=== PATIENT | female | born 1980 | race Caucasian/White ===

== ENCOUNTER 2017-09-23 23:06 | Emergency (ER) | END 2017-09-24 02:00 | disposition home or self-care (01) ==

== ENCOUNTER 2018-09-11 06:14 | Inpatient (IN) | payer OTHER ==
[~2018-09-11] VITALS: Ht 180.3 cm; Wt 110.7 kg
[~2018-09-11 06:14] MED LIST: FER325 PO; HYDR-4011 PO; IBUP-1542 PO; ONDA4TAB14 PO
[2018-09-11] MEDS ORDERED: morphine 4 MG/ML VIAL IV STA (07:22)
[2018-09-11] MEDS ORDERED: ONDANSETRON 4 MG INJ IV STA (07:22)
--- NOTE | 2018-09-11 07:48 | ERD ---
ER Documentation Chief Complaint Chief Complaint RIGHT FLANK PAIN XTODAY HPI 38-year-old female history of cholelithiasis. Abdominal pain began this morning around 2 AM approximately 5 to 6 hours prior to arrival. Patient attempted NSAIDs at home with minimal relief. No vomiting or diarrhea but does feel nauseous. No fevers or chills. Denies any change in diet, recent infections, recent travel or recent antibiotics. Denies any dysuria, vaginal discharge. ROS All systems reviewed and are negative except as per history of present illness. Medications Home Meds Discontinued Scripts Ondansetron (Ondansetron Odt) 4 Mg Tab.rapdis, 4 MG PO Q6H PRN for NAUSEA AND/OR VOMITING, #10 TAB Prov:CAROLINA CARDOZA PA-C 09/24/17 Ibuprofen* (Motrin*) 600 Mg Tab, 600 MG PO Q6, #30 TAB Prov:CAROLINA CARDOZA PA-C 09/24/17 Hydrocodone/Acetaminophen (Skandia 5-325 Tablet) 1 Each Tablet, 1 TAB PO Q6H PRN for PAIN, #7 TAB Prov:CAROLINA CARDOZA PA-C 09/24/17 Allergies Allergies: Coded Allergies: No Known Allergy (Unverified , 09/11/18) PMhx/Soc History of Surgery: No Anesthesia Reaction: No Hx Neurological Disorder: No Hx Respiratory Disorders: No Hx Cardiac Disorders: No Hx Psychiatric Problems: No Hx Miscellaneous Medical Probl: Yes (gallstones) Hx Alcohol Use: Yes (social) Hx Substance Use: No Hx Tobacco Use: No Smoking Status: Current some day smoker Physical Exam Vitals Vital Signs Date Temp Pulse Resp B/P (MAP) Pulse Ox O2 O2 Flow FiO2 Time Delivery Rate 09/11/18 99.5 73 19 131/58 98 06:16 (82) Physical Exam Const: No acute distress Head: Atraumatic Eyes: Normal Conjunctiva ENT: Normal External Ears, Nose and Mouth. Neck: Full range of motion. No meningismus. Resp: Clear to auscultation bilaterally Cardio: Regular rate and rhythm, no murmurs Abd: Soft, mild right upper quadrant tender, non distended. Normal bowel sounds Skin: No petechiae or rashes Back: No midline or flank tenderness Ext: No cyanosis, or edema Neur: Awake and alert Psych: Normal Mood and Affect Result Diagram: 09/11/18 0651 09/11/18 0651 Results 24 hrs Laboratory Tests Test 09/11/18 06:51 White Blood Count 6.1 10^3/ul Red Blood Count 4.24 10^6/ul Hemoglobin 7.2 g/dl Hematocrit 26.8 % Mean Corpuscular Volume 63.2 fl Mean Corpuscular Hemoglobin 17.0 pg Mean Corpuscular Hemoglobin Concent 26.9 g/dl Red Cell Distribution Width 18.4 % Platelet Count 273 10^3/UL Mean Platelet Volume 9.7 fl Immature Granulocytes % 0.200 % Neutrophils % 65.2 % Lymphocytes % 25.5 % Monocytes % 6.3 % Eosinophils % 1.8 % Basophils % 1.0 % Nucleated Red Blood Cells % 0.0 /100WBC Immature Granulocytes # 0.010 10^3/ul Neutrophils # 4.0 10^3/ul Lymphocytes # 1.6 10^3/ul Monocytes # 0.4 10^3/ul Eosinophils # 0.1 10^3/ul Basophils # 0.1 10^3/ul Nucleated Red Blood Cells # 0.0 10^3/ul Urine Color YELLOW Urine Clarity CLEAR Urine pH 5.0 Urine Specific [place] 1.015 Urine Ketones NEGATIVE mg/dL Urine Nitrite NEGATIVE mg/dL Urine Bilirubin NEGATIVE mg/dL Urine Urobilinogen NEGATIVE mg/dL Urine Leukocyte Esterase NEGATIVE Miles/ul Urine Hemoglobin NEGATIVE mg/dL Urine Glucose NEGATIVE mg/dL Urine Total Protein NEGATIVE mg/dl Sodium Level 141 mmol/L Potassium Level 3.8 mmol/L Chloride Level 108 mmol/L Carbon Dioxide Level 25 mmol/L Anion Gap 8 Blood Urea Nitrogen 8 mg/dl Creatinine 0.62 mg/dl Est Glomerular Filtrat Rate mL/min > 60 mL/min Glucose Level 107 mg/dl Calcium Level 9.1 mg/dl Total Bilirubin 0.3 mg/dl Direct Bilirubin 0.00 mg/dl Indirect Bilirubin 0.3 mg/dl Aspartate Amino Transf (AST/SGOT) 19 IU/L Alanine Aminotransferase (ALT/SGPT) 23 IU/L Alkaline Phosphatase 51 IU/L Total Protein 7.3 g/dl Albumin 4.0 g/dl Globulin 3.30 g/dl Albumin/Globulin Ratio 1.21 Lipase 43 U/L Serum HCG, Qualitative NEGATIVE Current Medications Medications Dose Sig/Jimbo Start Time Status Last (Trade) Ordered Route PRN Stop Time Admin Dose Reason Admin Morphine 4 mg ONCE STAT 09/11/18 DC Sulfate IV 07:22 (morphine) 09/11/18 07:23 Ondansetron 4 mg ONCE STAT 09/11/18 DC 09/11/18 HCl (Zofran IV 07:22 07:37 Inj) 09/11/18 07:23 Procedures/MDM Patient presents with abdominal pain, nausea and vomiting, has flatus , BM afebrile Patient is well appearing. Non acute abdominal exam. Low suspicion for AAA given no palpable mass. Low suspicion for mesenteric ischemia given pain not out of proportion to exam, and no major risk factors patient's ultrasound is concerning for possible cholecystitis. Given persistent pain will admit patient for further work-up. Furthermore patient does have a new anemia compared to one year ago no obvious bleeding rectally or vaginally. Will admit for further work-up of acute anemia hemodynamically stable. Low suspicion for SBO, appendicitis, mesenteric ischemia WILLIAMS THORNTON MD Sep 11, 2018 07:48
[2018-09-11] MEDS ORDERED: CEFTRIAXONE 1 GM/50 ML (PMX) 50 ML IVPB ONE (10:30)
[2018-09-11] MEDS ORDERED: ONDANSETRON 4 MG INJ IV PRN ×2 (10:30→14:00)
[2018-09-11] MEDS ORDERED: ACETAMINOPHEN 325 MG TAB PO PRN (10:30)
[2018-09-11] MEDS ORDERED: morphine 2 MG INJ IV PRN (14:00)
[2018-09-11] MEDS ORDERED: NACL 0.9% 3 ML SYG IV SCH (14:00)
--- NOTE | 2018-09-11 14:01 | HP ---
Date/Time of Note Date/Time of Note DATE: 09/11/18 TIME: 13:57 Assessment/Plan VTE Prophylaxis SCD applied (from Ns): Yes Pharmacological prophylaxis: NA/contraindicated Pharm contraindication: low risk/ambulating Assessment/Plan Hospital Course SUBJECTIVE: Lying in bed, currently having 2 out of 10 right upper quadrant abdominal pain. No fevers, nausea or vomiting. OBJECTIVE: Vital signs-see below PHYSICAL EXAM: Constitutional: Obese female,not in acute distress. HEENT: Head atraumatic and normocephalic. Eyes: Extraocular muscles intact. Anicteric sclerae. Pupils equal bilaterally, reactive to light. NECK: Supple without lymph node. CHEST: Clear and good breath sounds equally. No wheezing. No rhonchi. HEART: S1, S2. Regular rate and rhythm. ABDOMEN: +Tender RUQ. Soft with no rebound tenderness. Bowel sounds were present. EXTREMITIES: No cyanosis, clubbing or edema. NEUROLOGIC: Alert and oriented x3. No focal deficit. No sensory deficit. PSYCHOSOCIAL: No signs of depression. INTEGUMENTARY: No open wounds. ASSESSMENT AND PLAN:38 yo F w/ cholelithiasis, admitted with sudden onset of RUQ abdominal pain associated with nausea started this morning... Cholelithiasis with possible cholecystitis -Obtain HIDA scan -Empiric antimicrobials, n.p.o., IV fluids -Follow-up surgical recommendations Anemia with microcytic indicis -No overt bleeding signs -Rule out iron deficiency. Obtain iron studies and treat accordingly -Closely monitor H&H for need for transfusion if any. Obesity with a BMI 33.4 -Obtain lipid panel, A1c -Lifestyle changes/weight reduction advised Prophylaxis: SCDs/Pepcid Rest of the management depend on hospital course. Approximately 60-minute was spent on this history and physical. Patient was seen in collaboration with Dr. Brower. Result Diagram: 09/11/18 0651 09/11/18 0651 Results 24hrs Laboratory Tests Test 09/11/18 06:51 White Blood Count 6.1 # Red Blood Count 4.24 Hemoglobin 7.2 #L Hematocrit 26.8 #L Mean Corpuscular Volume 63.2 #L Mean Corpuscular Hemoglobin 17.0 #L Mean Corpuscular Hemoglobin Concent 26.9 L Red Cell Distribution Width 18.4 #H Platelet Count 273 # Mean Platelet Volume 9.7 Immature Granulocytes % 0.200 Neutrophils % 65.2 Lymphocytes % 25.5 Monocytes % 6.3 Eosinophils % 1.8 Basophils % 1.0 Nucleated Red Blood Cells % 0.0 Immature Granulocytes # 0.010 Neutrophils # 4.0 Lymphocytes # 1.6 Monocytes # 0.4 Eosinophils # 0.1 Basophils # 0.1 Nucleated Red Blood Cells # 0.0 Urine Color YELLOW Urine Clarity CLEAR Urine pH 5.0 Urine Specific [place] 1.015 Urine Ketones NEGATIVE Urine Nitrite NEGATIVE Urine Bilirubin NEGATIVE Urine Urobilinogen NEGATIVE Urine Leukocyte Esterase NEGATIVE Urine Hemoglobin NEGATIVE Urine Glucose NEGATIVE Urine Total Protein NEGATIVE Sodium Level 141 Potassium Level 3.8 Chloride Level 108 Carbon Dioxide Level 25 Anion Gap 8 Blood Urea Nitrogen 8 Creatinine 0.62 Est Glomerular Filtrat Rate mL/min > 60 Glucose Level 107 Calcium Level 9.1 Total Bilirubin 0.3 Direct Bilirubin 0.00 Indirect Bilirubin 0.3 Aspartate Amino Transf (AST/SGOT) 19 Alanine Aminotransferase (ALT/SGPT) 23 Alkaline Phosphatase 51 Total Protein 7.3 Albumin 4.0 Globulin 3.30 H Albumin/Globulin Ratio 1.21 Lipase 43 Serum HCG, Qualitative NEGATIVE HPI/ROS Admit Date/Time Admit Date/Time Hx of Present Illness This is a 38-year-old female with a known history of cholelithiasis, otherwise healthy, presented to the emergency room with sudden onset of right upper quadrant abdominal pain associated with nausea without vomiting started early this morning around 2:00. Patient denied fever or chills. Patient denied diar dee dee or constipation. Patient denied any upper/lower GI bleeding signs or symptoms. Patient denies any dysuria, hematuria, vaginal discharge. Patient also denies chest pain, shortness of breath, palpitation, numbness, tingling, loss of consciousness, dizziness, or other constitutional symptoms. In the emergency room, patient was noted with hemoglobin 7.2, hematocrit 26.8 with microcytic indicis. Serum hCG negative. A gallbladder ultrasound showed cholelithiasis with mild gallbladder wall thickening, with findings may represent cholecystitis and a HIDA scan was recommended. Patient received ceftriaxone and IV fluid with morphine in the emergency room. Surgical consult was called from the emergency room. ROS A 12 point review of system was assessed and is negative other than what is mentioned in the HPI PMH/Family/Social Past Medical History See HPI Medications Current Medications Ondansetron HCl (Zofran Inj) 4 mg BRIDGE ORDER PRN IV NAUSEA/VOMITING; Start 09/11/18 at 10:30; Stop 09/12/18 at 10:29 Acetaminophen (Tylenol Tab) 650 mg ER BRIDGE PRN PO .MILD PAIN 1-3 OR TEMP; Start 09/11/18 at 10:30; Stop 09/12/18 at 10:29 Coded Allergies: No Known Allergy (Unverified , 09/11/18) Past Surgical History Noncontributory Social History Denied alcohol/substance abuse history. Smoking Status: Current some day smoker Exam/Review of Systems Vital Signs Vitals Vital Signs Date Temp Pulse Resp B/P (MAP) Pulse Ox O2 O2 Flow FiO2 Time Delivery Rate 09/11/18 58 18 102/65 100 Room Air 13:16 (77) 09/11/18 99.5 06:16 NEGIN VENTURA NP Sep 11, 2018 14:01
[2018-09-11] MEDS: SOD CHLORIDE 0.9% 1,000 ML IV SCH (14:46)
[2018-09-11] MEDS: PIPER-TAZO 3.375 GM IV (PMX) 100 ML IVPB SCH ×2 (15:02→18:55)
[2018-09-11] MEDS: SOD FERRIC GLUC COMPLX 125 MG in SOD CHLORIDE 0.9% 100 ML IVPB SCH (16:14)
[2018-09-11 18:52] VITALS: Ht 180.3 cm; Wt 110.7 kg
--- NOTE | 2018-09-11 19:01 | CONS ---
Assessment/Plan Assessment/Plan Hospital Course (Demo Recall) 1. Symptomatic cholelithiasis: HIDA: Patent cystic and common bile duct; Abdominal symptoms currently resolved. Discussed surgical options with patient. At this time she is declining to have cholecystectomy. She can follow as outpatient for elective surgery -Outpatient elective surgery 2. Abdominal pain:Resolved 3. Microcytic hypochromic anemia: -Monitor and transfuse as needed -Per medical team 4. Obesity BMI: 33 -diet and exercise optimization -encourage weight loss Thank you. Patient seen and examined in collaboration with Dr. Jered North. Consultation Date/Type/Reason Admit Date/Time Date of Consultation: Sep 11, 2018 Type of Consult Surgical Reason for Consultation Gallstones Requesting Provider: NEGIN VENTURA NP Date/Time of Note DATE: 09/11/18 TIME: 18:50 Hx of Present Illness Javier Cantrell is a 38-year-old woman with past medical history of gallstones and obesity who presented to the ED with complaints of abdominal pain. 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 She denies fevers, chills, congested cough, chest pain, palpitations, nausea, vomiting, diarrhea, dysuria, vaginal discharge, seizures, rash, skin or scleral changes. Gallbladder ultrasound was performed which demonstrated cholelithiasis with mild gallbladder wall thickening concern for cholecystitis. HIDA scan was performed which noted patent cystic and common bile duct. Laboratory findings were remarkable for anemia. General surgery was asked to evaluate. 12 point review of systems was reviewed and is negative except as stated in HPI. Past Medical History As above Home Meds Discontinued Scripts Ondansetron (Ondansetron Odt) 4 Mg Tab.rapdis, 4 MG PO Q6H PRN for NAUSEA AND/OR VOMITING, #10 TAB Prov:CAROLINA CARDOZA PA-C 09/24/17 Ibuprofen* (Motrin*) 600 Mg Tab, 600 MG PO Q6, #30 TAB Prov:CAROLINA CARDOZA PA-C 09/24/17 Hydrocodone/Acetaminophen (Walker 5-325 Tablet) 1 Each Tablet, 1 TAB PO Q6H PRN for PAIN, #7 TAB Prov:CAROLINA CARDOZA PA-C 09/24/17 Medications Current Medications Ondansetron HCl (Zofran Inj) 4 mg BRIDGE ORDER PRN IV NAUSEA/VOMITING; Start 09/11/18 at 10:30; Stop 09/12/18 at 10:29 Acetaminophen (Tylenol Tab) 650 mg ER BRIDGE PRN PO .MILD PAIN 1-3 OR TEMP; Start 09/11/18 at 10:30; Stop 09/12/18 at 10:29 Sodium Chloride 1,000 ml @ 80 mls/hr [id number] IV Last administered on 09/11/18at 14:46; Admin Dose 80 MLS/HR; Start 09/11/18 at 13:52 IV Flush (NS 3 ml) 3 ml PER PROTOCOL IV ; Start 09/11/18 at 14:00 Ondansetron HCl (Zofran Inj) 4 mg Q6H PRN IV NAUSEA/VOMITING; Start 09/11/18 at 14:00 Morphine Sulfate (morphine) 2 mg Q4H PRN IV .SEVERE PAIN 7-10; Start 09/11/18 at 14:00 Famotidine (Pepcid Iv) 20 mg Q12 IV ; Start 09/11/18 at 21:00 Piperacillin Sod/ Tazobactam Sod 100 ml @ 200 mls/hr Q6 IVPB Last administered on 09/11/18at 15:02; Admin Dose 200 MLS/HR; Start 09/11/18 at 15:00 Ferric Sodium Gluconate Complex 125 mg/Sodium Chloride 110 ml @ 110 mls/hr DAILY@1300 IVPB Last administered on 09/11/18at 16:14; Admin Dose 110 MLS/HR; Start 09/11/18 at 15:30; Stop 09/15/18 at 13:59 Allergies: Coded Allergies: No Known Allergy (Unverified , 09/11/18) Past Surgical History Past Surgical Hx: no surgical history Family History Significant Family History: no pertinent family hx Social History Alcohol Use: none Smoking Status: Current some day smoker Drug Use: none Exam/Review of Systems Exam Vitals Vital Signs Date Temp Pulse Resp B/P (MAP) Pulse Ox O2 O2 Flow FiO2 Time Delivery Rate 09/11/18 98.0 62 18 100/44 100 Room Air 17:39 (62) Constitutional: alert, oriented Psych: nl mood/affect; No anxiety Head: normocephalic, atraumatic Eyes: nl conjunctiva, nl lids, nl sclera ENMT: nl external ears & nose, nl lips & teeth Neck: supple, non-tender Respiratory: normal air movement; No congested cough Cardiovascular: regular rate and rhythm, nl pulses Gastrointestinal: soft, non-tender, other (Negative Woody's by palpation); No distended Genitourinary - Female: nl external genitalia Musculoskeletal: nl extremities to inspection, nl gait and stance Extremities: normal pulses Neurological: nl mental status, nl speech, nl strength Skin: nl turgor Lymph: nl lymph nodes Results Result Diagram: 09/11/18 0651 09/11/18 0651 Results 24hrs Laboratory Tests Test 09/11/18 06:51 White Blood Count 6.1 # Red Blood Count 4.24 Hemoglobin 7.2 #L Hematocrit 26.8 #L Mean Corpuscular Volume 63.2 #L Mean Corpuscular Hemoglobin 17.0 #L Mean Corpuscular Hemoglobin Concent 26.9 L Red Cell Distribution Width 18.4 #H Platelet Count 273 # Mean Platelet Volume 9.7 Immature Granulocytes % 0.200 Neutrophils % 65.2 Lymphocytes % 25.5 Monocytes % 6.3 Eosinophils % 1.8 Basophils % 1.0 Nucleated Red Blood Cells % 0.0 Immature Granulocytes # 0.010 Neutrophils # 4.0 Lymphocytes # 1.6 Monocytes # 0.4 Eosinophils # 0.1 Basophils # 0.1 Nucleated Red Blood Cells # 0.0 Urine Color YELLOW Urine Clarity CLEAR Urine pH 5.0 Urine Specific [place] 1.015 Urine Ketones NEGATIVE Urine Nitrite NEGATIVE Urine Bilirubin NEGATIVE Urine Urobilinogen NEGATIVE Urine Leukocyte Esterase NEGATIVE Urine Hemoglobin NEGATIVE Urine Glucose NEGATIVE Urine Total Protein NEGATIVE Sodium Level 141 Potassium Level 3.8 Chloride Level 108 Carbon Dioxide Level 25 Anion Gap 8 Blood Urea Nitrogen 8 Creatinine 0.62 Est Glomerular Filtrat Rate mL/min > 60 Glucose Level 107 Calcium Level 9.1 Iron Level < 10 L Total Iron Binding Capacity 426 H Percent Iron Saturation Ferritin 3.5 L Total Bilirubin 0.3 Direct Bilirubin 0.00 Indirect Bilirubin 0.3 Aspartate Amino Transf (AST/SGOT) 19 Alanine Aminotransferase (ALT/SGPT) 23 Alkaline Phosphatase 51 Total Protein 7.3 Albumin 4.0 Globulin 3.30 H Albumin/Globulin Ratio 1.21 Lipase 43 Serum HCG, Qualitative NEGATIVE Medications Medication Current Medications Ondansetron HCl (Zofran Inj) 4 mg BRIDGE ORDER PRN IV NAUSEA/VOMITING; Start 09/11/18 at 10:30; Stop 09/12/18 at 10:29 Acetaminophen (Tylenol Tab) 650 mg ER BRIDGE PRN PO .MILD PAIN 1-3 OR TEMP; Start 09/11/18 at 10:30; Stop 09/12/18 at 10:29 Sodium Chloride 1,000 ml @ 80 mls/hr [id number] IV Last administered on 09/11/18at 14:46; Admin Dose 80 MLS/HR; Start 09/11/18 at 13:52 IV Flush (NS 3 ml) 3 ml PER PROTOCOL IV ; Start 09/11/18 at 14:00 Ondansetron HCl (Zofran Inj) 4 mg Q6H PRN IV NAUSEA/VOMITING; Start 09/11/18 at 14:00 Morphine Sulfate (morphine) 2 mg Q4H PRN IV .SEVERE PAIN 7-10; Start 09/11/18 at 14:00 Famotidine (Pepcid Iv) 20 mg Q12 IV ; Start 09/11/18 at 21:00 Piperacillin Sod/ Tazobactam Sod 100 ml @ 200 mls/hr Q6 IVPB Last administered on 09/11/18at 15:02; Admin Dose 200 MLS/HR; Start 09/11/18 at 15:00 Ferric Sodium Gluconate Complex 125 mg/Sodium Chloride 110 ml @ 110 mls/hr DAILY@1300 IVPB Last administered on 09/11/18at 16:14; Admin Dose 110 MLS/HR; Start 09/11/18 at 15:30; Stop 09/15/18 at 13:59 GIOVANNI SEVILLA NP Sep 11, 2018 19:00
[2018-09-11 19:03] VITALS: BP 95/60; PULSE 75; RESP 18
[2018-09-11 20:30] VITALS: PULSE 46
[2018-09-11 20:35] VITALS: BP 99/55; PULSE 46; RESP 18
[2018-09-11] MEDS: FAMOTIDINE 20 MG INJ IV SCH (20:55)
[2018-09-11 21:00] VITALS: PULSE 48
[2018-09-11 22:05] VITALS: PULSE 51
[2018-09-12] VITALS (12 sets, daily range): BP systolic 92–130; BP diastolic 38–71; PULSE 22–66; RESP 17–20
[2018-09-12] MEDS: PIPER-TAZO 3.375 GM IV (PMX) 100 ML IVPB SCH ×4 (00:02→19:00)
[2018-09-12] MEDS: SOD CHLORIDE 0.9% 1,000 ML IV SCH ×3 (01:38→19:00)
[2018-09-12] MEDS: FAMOTIDINE 20 MG INJ IV SCH ×2 (08:43→20:25)
--- NOTE | 2018-09-12 10:30 | PN ---
Date/Time of Note Date/Time of Note DATE: 09/12/18 TIME: 10:26 Assessment/Plan Lines/Catheters IV Catheter Type (from [facility]): Peripheral IV Venegas in Place (from [facility]): No Assessment/Plan Chief Complaint/Hosp Course 1. Symptomatic cholelithiasis: HIDA: Patent cystic and common bile duct; Abdominal symptoms currently resolved. Discussed surgical options with patient. At this time she is declining to have cholecystectomy. She can follow as outpatient for elective surgery -Outpatient elective surgery 2. Abdominal pain:Resolved 3. Microcytic hypochromic anemia: worsened -Monitor and transfuse as needed -Per medical team 4. Obesity BMI: 33 -diet and exercise optimization -encourage weight loss Thank you. Patient seen and examined in collaboration with Dr. Jered North. Subjective 24 Hr Interval Summary Feels well. No abdominal pain. Tolerated soft diet. No fevers, chills, sob, congested cough, cp, palpitations, castillo, dizziness, nausea, vomiting, diarrhea, dysuria. Exam/Review of Systems Vital Signs Vitals Vital Signs Date Temp Pulse Resp B/P (MAP) Pulse Ox O2 O2 Flow FiO2 Time Delivery Rate 09/12/18 97.9 50 20 101/50 96 Room Air 08:16 (67) Intake and Output 09/11/18 09/11/18 09/12/18 1515:00 23:00 07:00 IntakeIntake Total 100 ml 1545 ml BalanceBalance 100 ml 1545 ml Exam Free Text/Dictation Constitutional: alert, oriented Psych: nl mood/affect; No anxiety Head: normocephalic, atraumatic Eyes: nl conjunctiva, nl lids, nl sclera ENMT: nl external ears & nose, nl lips & teeth Neck: supple, non-tender Respiratory: normal air movement; No congested cough Cardiovascular: regular rate and rhythm, nl pulses Gastrointestinal: soft, non-tender, other (Negative Woody's by palpation); No distended Genitourinary - Female: nl external genitalia Musculoskeletal: nl extremities to inspection, nl gait and stance Extremities: normal pulses Neurological: nl mental status, nl speech, nl strength Skin: nl turgor Lymph: nl lymph nodes Results Result Diagram: 09/12/18 0547 09/12/18 0547 GIOVANNI SEVILLA NP Sep 12, 2018 10:30
--- NOTE | 2018-09-12 13:37 | PN ---
Date/Time of Note Date/Time of Note DATE: 09/12/18 TIME: 13:32 Assessment/Plan VTE Prophylaxis Risk score (from [facility])>0 risk: 1 SCD applied (from [facility]): Yes Pharmacological prophylaxis: other Pharm contraindication: other Lines/Catheters IV Catheter Type ([facility]): Peripheral IV Urinary Cath still in place: No Assessment/Plan Assessment/Plan 1. Symptomatic cholelithiasis, symptoms resolved, patient declines surgery now 2. Iron deficiency anemia, intermittent bright blood rectal bleeding, likely hemorrhoids, one unit PRBC, iv iron, GI consult Result Diagram: 09/12/18 0547 09/12/18 0547 Results 24hrs Laboratory Tests Test 09/12/18 05:47 White Blood Count 4.8 # Red Blood Count 3.76 L Hemoglobin 6.3 *L Hematocrit 24.3 L Mean Corpuscular Volume 64.6 L Mean Corpuscular Hemoglobin 16.8 L Mean Corpuscular Hemoglobin Concent 25.9 L Red Cell Distribution Width 18.2 H Platelet Count 232 Mean Platelet Volume 9.9 Immature Granulocytes % 0.200 Neutrophils % 51.2 Segmented Neutrophils % (Manual) 42 Band Neutrophils % (Manual) 1 Lymphocytes % 38.5 Lymphocytes % (Manual) 46 Monocytes % 6.9 Monocytes % (Manual) 2 Eosinophils % 2.1 Eosinophils % (Manual) 8 H Basophils % 1.1 Basophils % (Manual) 1 Nucleated Red Blood Cells % 0.0 Immature Granulocytes # 0.010 Neutrophils # 2.4 Neutrophils # (Manual) 2.0 Band Neutrophils # 0.0 Lymphocytes (Manual) 2.2 Lymphocytes # 1.8 Monocytes # 0.3 Monocytes # (Manual) 0.0 L Eosinophils # 0.1 Basophils # 0.1 Basophils # (Manual) 0.0 Nucleated Red Blood Cells # 0.0 Pathologist Review (Hematology) YES Platelet Estimate NORMAL Giant Platelets 11 H Polychromasia 2+ Hypochromasia 1+ Poikilocytosis 2+ Anisocytosis 3+ Microcytosis 3+ Spherocytes 1+ Ovalocytes 2+ Sodium Level 144 Potassium Level 3.9 Chloride Level 110 Carbon Dioxide Level 26 Anion Gap 8 Blood Urea Nitrogen 8 Creatinine 0.76 Est Glomerular Filtrat Rate mL/min > 60 Glucose Level 93 Hemoglobin A1c 5.7 Calcium Level 8.6 Phosphorus Level 4.2 Magnesium Level 1.8 Total Bilirubin 0.5 Direct Bilirubin 0.00 Indirect Bilirubin 0.5 Aspartate Amino Transf (AST/SGOT) 20 Alanine Aminotransferase (ALT/SGPT) 34 Alkaline Phosphatase 44 Total Protein 6.4 Albumin 3.5 Globulin 2.90 Albumin/Globulin Ratio 1.20 Triglycerides Level 102 Cholesterol Level 94 L LDL Cholesterol, Calculated 55 HDL Cholesterol 19 L Cholesterol/HDL Ratio 4.9 Subjective 24 Hr Interval Summary Free Text/Dictation no abdominal pain, no fev er or chills No dizziness, no weakness Exam/Review of Systems Exam Vitals Vital Signs Date Temp Pulse Resp B/P (MAP) Pulse Ox O2 O2 Flow FiO2 Time Delivery Rate 09/12/18 97.9 50 20 101/50 96 Room Air 08:16 (67) Intake and Output 09/11/18 09/11/18 09/12/18 1515:00 23:00 07:00 IntakeIntake Total 100 ml 1545 ml BalanceBalance 100 ml 1545 ml Constitutional: alert, oriented, well developed, obese Psych: no complaints, nl mood/affect Head: normocephalic, atraumatic Eyes: nl conjunctiva, EOMI, nl lids, PERRL ENMT: nl external ears & nose, nl lips & teeth, nl nasal mucosa & septum Neck: supple, non-tender Respiratory: clear to auscultation, normal air movement; No congested cough, No crackles/rales, No diminished breath sounds, No intercostal retraction, No labored breathing, No respirations, No tactile fremitus, No wheezing, No other Cardiovascular: regular rate and rhythm, nl pulses; No bruits, No diastolic murmur, No edema, No gallop, No irregular rhythm, No jugular venous distention (JVD), No murmurs/extra sounds, No rub, No systolic murmur, No S3, No S4, No other Gastrointestinal: soft, nl liver, spleen, non-tender Musculoskeletal: nl extremities to inspection Extremities: normal pulses; No calf tenderness, No cyanosis, No clubbing, No edema, No pitting pedal edema, No palpable cord, No tenderness, No other 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, nl mental status, nl speech, nl strength Skin: other (paalor) Results Results 24hrs Laboratory Tests Test 09/12/18 05:47 White Blood Count 4.8 # Red Blood Count 3.76 L Hemoglobin 6.3 *L Hematocrit 24.3 L Mean Corpuscular Volume 64.6 L Mean Corpuscular Hemoglobin 16.8 L Mean Corpuscular Hemoglobin Concent 25.9 L Red Cell Distribution Width 18.2 H Platelet Count 232 Mean Platelet Volume 9.9 Immature Granulocytes % 0.200 Neutrophils % 51.2 Segmented Neutrophils % (Manual) 42 Band Neutrophils % (Manual) 1 Lymphocytes % 38.5 Lymphocytes % (Manual) 46 Monocytes % 6.9 Monocytes % (Manual) 2 Eosinophils % 2.1 Eosinophils % (Manual) 8 H Basophils % 1.1 Basophils % (Manual) 1 Nucleated Red Blood Cells % 0.0 Immature Granulocytes # 0.010 Neutrophils # 2.4 Neutrophils # (Manual) 2.0 Band Neutrophils # 0.0 Lymphocytes (Manual) 2.2 Lymphocytes # 1.8 Monocytes # 0.3 Monocytes # (Manual) 0.0 L Eosinophils # 0.1 Basophils # 0.1 Basophils # (Manual) 0.0 Nucleated Red Blood Cells # 0.0 Pathologist Review (Hematology) YES Platelet Estimate NORMAL Giant Platelets 11 H Polychromasia 2+ Hypochromasia 1+ Poikilocytosis 2+ Anisocytosis 3+ Microcytosis 3+ Spherocytes 1+ Ovalocytes 2+ Sodium Level 144 Potassium Level 3.9 Chloride Level 110 Carbon Dioxide Level 26 Anion Gap 8 Blood Urea Nitrogen 8 Creatinine 0.76 Est Glomerular Filtrat Rate mL/min > 60 Glucose Level 93 Hemoglobin A1c 5.7 Calcium Level 8.6 Phosphorus Level 4.2 Magnesium Level 1.8 Total Bilirubin 0.5 Direct Bilirubin 0.00 Indirect Bilirubin 0.5 Aspartate Amino Transf (AST/SGOT) 20 Alanine Aminotransferase (ALT/SGPT) 34 Alkaline Phosphatase 44 Total Protein 6.4 Albumin 3.5 Globulin 2.90 Albumin/Globulin Ratio 1.20 Triglycerides Level 102 Cholesterol Level 94 L LDL Cholesterol, Calculated 55 HDL Cholesterol 19 L Cholesterol/HDL Ratio 4.9 Medications Medication Current Medications Sodium Chloride 1,000 ml @ 80 mls/hr [id number] IV Last administered on 09/11/18at 14:46; Admin Dose 80 MLS/HR; Start 09/11/18 at 13:52 IV Flush (NS 3 ml) 3 ml PER PROTOCOL IV ; Start 09/11/18 at 14:00 Ondansetron HCl (Zofran Inj) 4 mg Q6H PRN IV NAUSEA/VOMITING; Start 09/11/18 at 14:00 Morphine Sulfate (morphine) 2 mg Q4H PRN IV .SEVERE PAIN 7-10; Start 09/11/18 at 14:00 Famotidine (Pepcid Iv) 20 mg Q12 IV Last administered on 09/12/18at 08:43; Admin Dose 20 MG; Start 09/11/18 at 21:00 Piperacillin Sod/ Tazobactam Sod 100 ml @ 200 mls/hr Q6 IVPB Last administered on 09/12/18at 11:21; Admin Dose 200 MLS/HR; Start 09/11/18 at 15:00 Ferric Sodium Gluconate Complex 125 mg/Sodium Chloride 110 ml @ 110 mls/hr DAILY@1300 IVPB Last administered on 09/11/18at 16:14; Admin Dose 110 MLS/HR; Start 09/11/18 at 15:30; Stop 09/15/18 at 13:59 ALBINO TIMMONS MD Sep 12, 2018 13:37
[2018-09-12] MEDS: SOD FERRIC GLUC COMPLX 125 MG in SOD CHLORIDE 0.9% 100 ML IVPB SCH (13:57)
--- NOTE | 2018-09-12 16:36 | CONS ---
Assessment/Plan Assessment/Plan Hospital Course (Demo Recall) Summary Assessment and Plan: Assessment: Severe microcytic anemia Intermittent rectal bleeding Right upper quadrant pain-resolved Cholelithiasis Plan: Clear liquid diet now N.p.o. after 09/13/2018 0800 EGD colonoscopy tomorrow Endoscopy - risks/benefits/alternatives/indications of procedure and sedation/anesthesia discussed with patient who states understanding and gives informed consent to proceed. Monitor H/H, transfuse for hemoglobin less than 7.5 Anusol Supp - PRN Patient seen in collaboration with Dr. Austin CC: DON AUSTIN MD ; Consultation Date/Type/Reason Admit Date/Time Date of Consultation: Sep 12, 2018 Type of Consult GI Reason for Consultation Severe microcytic anemia Date/Time of Note DATE: 09/12/18 TIME: 16:29 Hx of Present Illness This is a 38-year-old female with a history of cholelithiasis who presented to the ED with complaints of sudden right upper quadrant pain associated with nausea without vomiting. Work-up was done including a gallbladder ultrasound showing cholelithiasis with mild gallbladder wall thickening findings may represent cholecystitis. A HIDA scan was obtained showing patent cystic duct and common bile duct. Patient has not declined surgical intervention. However, with normal work-up in the ED patient found to have microcytic anemia with a hemoglobin 7.2 hemoglobin was rechecked today noted to be 6.3. GIs been consulted for further evaluation. Patient states she has had intermittent rectal bleeding for over a year she was seen by her primary care physician and deemed to be secondary to hemorrhoids was given cream. She denies heavy menses, change in bowel habits, melena, unintentional weight loss, hematemesis. Discussed plan for endoscopic evaluation i.e. EGD/colonoscopy. I reviewed risk/benefits of both sedation and procedure patient verbalized understanding is agreeable Past Medical History Home Meds Discontinued Scripts Ondansetron (Ondansetron Odt) 4 Mg Tab.rapdis, 4 MG PO Q6H PRN for NAUSEA AND/OR VOMITING, #10 TAB Prov:CAROLINA CARDOZA PA-C 09/24/17 Ibuprofen* (Motrin*) 600 Mg Tab, 600 MG PO Q6, #30 TAB Prov:CAROLINA CARDOZA PA-C 09/24/17 Hydrocodone/Acetaminophen ([place] 5-325 Tablet) 1 Each Tablet, 1 TAB PO Q6H PRN for PAIN, #7 TAB Prov:CAROLINA CARDOZA PA-C 09/24/17 Medications Current Medications Sodium Chloride 1,000 ml @ 80 mls/hr [id number] IV Last administered on 09/11/18at 14:46; Admin Dose 80 MLS/HR; Start 09/11/18 at 13:52 IV Flush (NS 3 ml) 3 ml PER PROTOCOL IV ; Start 09/11/18 at 14:00 Ondansetron HCl (Zofran Inj) 4 mg Q6H PRN IV NAUSEA/VOMITING; Start 09/11/18 at 14:00 Morphine Sulfate (morphine) 2 mg Q4H PRN IV .SEVERE PAIN 7-10; Start 09/11/18 at 14:00 Famotidine (Pepcid Iv) 20 mg Q12 IV Last administered on 09/12/18at 08:43; Admin Dose 20 MG; Start 09/11/18 at 21:00 Piperacillin Sod/ Tazobactam Sod 100 ml @ 200 mls/hr Q6 IVPB Last administered on 09/12/18at 11:21; Admin Dose 200 MLS/HR; Start 09/11/18 at 15:00 Ferric Sodium Gluconate Complex 125 mg/Sodium Chloride 110 ml @ 110 mls/hr DAILY@1300 IVPB Last administered on 09/12/18at 13:57; Admin Dose 110 MLS/HR; Start 09/11/18 at 15:30; Stop 09/15/18 at 13:59 Allergies: Coded Allergies: No Known Allergy (Unverified , 09/11/18) Past Surgical History Past Surgical Hx: no surgical history Social History Alcohol Use: none Smoking Status: Current some day smoker Drug Use: none Exam/Review of Systems Exam Vitals Vital Signs Date Temp Pulse Resp B/P (MAP) Pulse Ox O2 O2 Flow FiO2 Time Delivery Rate 09/12/18 98.3 66 18 119/38 98 Room Air 15:37 (65) Intake and Output 09/11/18 09/11/18 09/12/18 1515:00 23:00 07:00 IntakeIntake Total 100 ml 1545 ml BalanceBalance 100 ml 1545 ml Exam PHYSICAL EXAMINATION: GENERAL: Pale, alert & oriented x 3, in no acute distress SKIN: No lesions HEAD: Normocephalic, atraumatic, no tenderness. EYES: Pupils equal reactive to light and accommodation, no discharge. EARS/NOSE AND THROAT: Ears normal, nose normal. NECK: Supple, no masses CHEST: Inspection within normal limits. CARDIOVASCULAR: Heart: Regular rate and rhythm RESPIRATORY: Lungs clear to auscultation and percussion, no wheezing, no rubs GASTROINTESTINAL AND LIVER: Abdomen: Soft, non tenderness, non-distended, no hernias, no masses, no organomegaly, normoactive bowel sounds. Rectal: Deferred. EXTREMITIES: No cyanosis, clubbing or edema. Results Result Diagram: 09/12/18 0547 09/12/18 0547 Results 24hrs Laboratory Tests Test 09/12/18 05:47 White Blood Count 4.8 # Red Blood Count 3.76 L Hemoglobin 6.3 *L Hematocrit 24.3 L Mean Corpuscular Volume 64.6 L Mean Corpuscular Hemoglobin 16.8 L Mean Corpuscular Hemoglobin Concent 25.9 L Red Cell Distribution Width 18.2 H Platelet Count 232 Mean Platelet Volume 9.9 Immature Granulocytes % 0.200 Neutrophils % 51.2 Segmented Neutrophils % (Manual) 42 Band Neutrophils % (Manual) 1 Lymphocytes % 38.5 Lymphocytes % (Manual) 46 Monocytes % 6.9 Monocytes % (Manual) 2 Eosinophils % 2.1 Eosinophils % (Manual) 8 H Basophils % 1.1 Basophils % (Manual) 1 Nucleated Red Blood Cells % 0.0 Immature Granulocytes # 0.010 Neutrophils # 2.4 Neutrophils # (Manual) 2.0 Band Neutrophils # 0.0 Lymphocytes (Manual) 2.2 Lymphocytes # 1.8 Monocytes # 0.3 Monocytes # (Manual) 0.0 L Eosinophils # 0.1 Basophils # 0.1 Basophils # (Manual) 0.0 Nucleated Red Blood Cells # 0.0 Pathologist Review (Hematology) YES Platelet Estimate NORMAL Giant Platelets 11 H Polychromasia 2+ Hypochromasia 1+ Poikilocytosis 2+ Anisocytosis 3+ Microcytosis 3+ Spherocytes 1+ Ovalocytes 2+ Sodium Level 144 Potassium Level 3.9 Chloride Level 110 Carbon Dioxide Level 26 Anion Gap 8 Blood Urea Nitrogen 8 Creatinine 0.76 Est Glomerular Filtrat Rate mL/min > 60 Glucose Level 93 Hemoglobin A1c 5.7 Calcium Level 8.6 Phosphorus Level 4.2 Magnesium Level 1.8 Total Bilirubin 0.5 Direct Bilirubin 0.00 Indirect Bilirubin 0.5 Aspartate Amino Transf (AST/SGOT) 20 Alanine Aminotransferase (ALT/SGPT) 34 Alkaline Phosphatase 44 Total Protein 6.4 Albumin 3.5 Globulin 2.90 Albumin/Globulin Ratio 1.20 Triglycerides Level 102 Cholesterol Level 94 L LDL Cholesterol, Calculated 55 HDL Cholesterol 19 L Cholesterol/HDL Ratio 4.9 Medications Medication Current Medications Sodium Chloride 1,000 ml @ 80 mls/hr [id number] IV Last administered on 09/11/18at 14:46; Admin Dose 80 MLS/HR; Start 09/11/18 at 13:52 IV Flush (NS 3 ml) 3 ml PER PROTOCOL IV ; Start 09/11/18 at 14:00 Ondansetron HCl (Zofran Inj) 4 mg Q6H PRN IV NAUSEA/VOMITING; Start 09/11/18 at 14:00 Morphine Sulfate (morphine) 2 mg Q4H PRN IV .SEVERE PAIN 7-10; Start 09/11/18 at 14:00 Famotidine (Pepcid Iv) 20 mg Q12 IV Last administered on 09/12/18at 08:43; Admin Dose 20 MG; Start 09/11/18 at 21:00 Piperacillin Sod/ Tazobactam Sod 100 ml @ 200 mls/hr Q6 IVPB Last administered on 09/12/18at 11:21; Admin Dose 200 MLS/HR; Start 09/11/18 at 15:00 Ferric Sodium Gluconate Complex 125 mg/Sodium Chloride 110 ml @ 110 mls/hr DAILY@1300 IVPB Last administered on 09/12/18at 13:57; Admin Dose 110 MLS/HR; Start 09/11/18 at 15:30; Stop 09/15/18 at 13:59 CALISTA PAINTER Sep 12, 2018 16:36
[2018-09-12] MEDS ORDERED: HARD FAT/PHENYLEPHRINE SUPP PR PRN (17:00)
[2018-09-12] MEDS ORDERED: BISACODYL (EC) 5 MG TAB PO ONE (17:00)
[2018-09-12] MEDS ORDERED: MAGNESIUM CITRATE 300 ML BTL PO ONE (17:30)
[2018-09-12] MEDS ORDERED: POLYETHYLENE GLYCOL 3350 119 GM POWDER PO ONE (18:30)
[2018-09-13] VITALS (13 sets, daily range): BP systolic 85–115; BP diastolic 48–81; PULSE 50–71; RESP 14–23
[2018-09-13] MEDS: PIPER-TAZO 3.375 GM IV (PMX) 100 ML IVPB SCH ×4 (00:08→17:48)
[2018-09-13] MEDS ORDERED: POLYETHYLENE GLYCOL 3350 119 GM POWDER PO ONE (06:00)
[2018-09-13] MEDS ORDERED: BISACODYL (EC) 5 MG TAB PO ONE (08:00)
[2018-09-13] MEDS: FAMOTIDINE 20 MG INJ IV SCH (08:11)
--- NOTE | 2018-09-13 10:59 | DS ---
Date/Time of Note Date/Time of Note DATE: 09/13/18 TIME: 10:53 Discharge Summary Admission/Discharge Info Admit Date/Time Sep 11, 2018 at 10:10 Discharge Date/Time Discharge Diagnosis 1. Symptomatic cholelithiasis, symptoms resolved, follow up with surgery 2. Iron deficiency anemia, internal hem hemorrhoids, no active bleeding, iron supplement, follow up with surgery Patient Condition: Stable Procedures EGD/Colonoscopy on 09/13/2018 Hospital Course Javier Cantrell is a 38-year-old woman with past medical history of gallstones and obesity who presented to the ED with complaints of abdominal pain. Abdominal pain is predominantly in the right upper quadrant which began operations mgr today. She denies fevers, chills, congested cough, chest pain, palpitations, nausea, vomiting, diarrhea, dysuria, vaginal discharge, seizures, rash, skin or scleral changes. Gallbladder ultrasound was performed which demonstrated cholelithiasis with mild gallbladder wall thickening concern for cholecystitis. HIDA scan was performed which noted patent cystic and common bile duct. Abdominal pain resolved after admission. HIDA scan negative for cholecystitis. Surgery is discussed with the patient that she declines it at this time. She is instructed to follow up with surgery to have elective cholecystectomy. Patient has iron deficiency anemia. She reported intermittent rectal fresh blood bleeding. EGD only shows mild esophagitis and gastritis, no active bleeding, colonoscopy revealed large internal hemmorrhoids, no active bleeding. She got iv iron that improves her H/H from 6.3/24.3 to 7.9/29.1 on 09/13/2018. She will be on iron supplement and follow up with PCP and GI outpatient. Home Meds Active Scripts Ferrous Sulfate* (Ferrous Sulfate*) 325 Mg Tabec, 325 MG PO BID for 60 Days, TAB Prov:ALBINO TIMMONS MD 09/13/18 Discontinued Scripts Ondansetron (Ondansetron Odt) 4 Mg Tab.rapdis, 4 MG PO Q6H PRN for NAUSEA AND/OR VOMITING, #10 TAB Prov:CAROLINA CARDOZA PA-C 09/24/17 Ibuprofen* (Motrin*) 600 Mg Tab, 600 MG PO Q6, #30 TAB Prov:CAROLINA CARDOZA PA-C 09/24/17 Hydrocodone/Acetaminophen ([place] 5-325 Tablet) 1 Each Tablet, 1 TAB PO Q6H PRN for PAIN, #7 TAB Prov:CAROLINA CARDOZA PA-C 09/24/17 Follow-up Plan PCP and GI in one week surgery in two weeks Primary Care Provider Not On Staff Doctor Pending Labs Laboratory Tests Test 09/13/18 05:25 White Blood Count 7.0 10^3/ul (4.8-10.8) Red Blood Count 4.34 10^6/ul (4.20-5.40) Hemoglobin 7.9 g/dl (12.0-16.0) Hematocrit 29.1 % (37.0-47.0) Mean Corpuscular Volume 67.1 fl (82.0-101.0) Mean Corpuscular Hemoglobin 18.2 pg (29.0-33.0) Mean Corpuscular Hemoglobin Concent 27.1 g/dl (32.0-37.0) Red Cell Distribution Width 20.8 % (11.5-14.5) Platelet Count 285 10^3/UL (140-415) Mean Platelet Volume 10.6 fl (7.4-10.4) Immature Granulocytes % 0.400 % (0.001-0.429) Neutrophils % 58.3 % (39.0-77.0) Lymphocytes % 31.2 % (15.0-51.0) Monocytes % 7.1 % (0.0-11.0) Eosinophils % 2.1 % (0.0-7.0) Basophils % 0.9 % (0.0-2.0) Nucleated Red Blood Cells % 0.3 /100WBC (0.0-0.0) Immature Granulocytes # 0.030 10^3/ul (0.0-0.031) Neutrophils # 4.1 10^3/ul (1.6-7.5) Lymphocytes # 2.2 10^3/ul (0.8-2.9) Monocytes # 0.5 10^3/ul (0.3-0.9) Eosinophils # 0.2 10^3/ul (0.0-0.5) Basophils # 0.1 10^3/ul (0.0-0.1) Nucleated Red Blood Cells # 0.0 10^3/ul (0.0-0.0) Sodium Level 144 mmol/L (135-144) Potassium Level 4.0 mmol/L (3.5-5.1) Chloride Level 111 mmol/L (97-110) Carbon Dioxide Level 26 mmol/L (21-31) Anion Gap 7 (5-13) Blood Urea Nitrogen 6 mg/dl (7-20) Creatinine 0.76 mg/dl (0.44-1.00) Est Glomerular Filtrat Rate mL/min > 60 mL/min (>60) Glucose Level 95 mg/dl (70-220) Calcium Level 9.1 mg/dl (8.4-10.2) ALBINO TIMMONS MD Sep 13, 2018 10:59
[2018-09-13] MEDS: SOD FERRIC GLUC COMPLX 125 MG in SOD CHLORIDE 0.9% 100 ML IVPB SCH (13:10)
--- NOTE | 2018-09-13 13:21 | PN ---
Date/Time of Note Date/Time of Note DATE: 09/13/18 TIME: 13:19 Assessment/Plan Lines/Catheters IV Catheter Type (from [facility]): Peripheral IV Venegas in Place (from [facility]): No Assessment/Plan Chief Complaint/Hosp Course 1. Symptomatic cholelithiasis: HIDA: Patent cystic and common bile duct; Abdominal symptoms currently resolved. Discussed surgical options with patient. At this time she is declining to have cholecystectomy. She can follow as outpatient for elective surgery -Outpatient elective surgery 2. Abdominal pain:Resolved 3. Microcytic hypochromic anemia: worsened -Monitor and transfuse as needed -gi consult> egd/colonoscopy pending today 4. Obesity BMI: 33 -diet and exercise optimization -encourage weight loss Thank you. Patient seen and examined in collaboration with Dr. Jered North. Subjective 24 Hr Interval Summary Feels well. No abdominal pain. No fevers, chills, sob, congested cough, cp, palpitations, castillo, dizziness, n/v/d/dysuria. Pending EGD/colonoscopy today. Exam/Review of Systems Vital Signs Vitals Vital Signs Date Temp Pulse Resp B/P (MAP) Pulse Ox O2 O2 Flow FiO2 Time Delivery Rate 09/13/18 98.2 52 16 111/81 99 Room Air 07:18 (91) Intake and Output 09/12/18 09/12/18 09/13/18 1515:00 23:00 07:00 IntakeIntake Total 2210 ml 1140 ml 600 ml BalanceBalance 2210 ml 1140 ml 600 ml Exam Free Text/Dictation Constitutional: alert, oriented Psych: nl mood/affect; No anxiety Head: normocephalic, atraumatic Eyes: nl conjunctiva, nl lids, nl sclera ENMT: nl external ears & nose, nl lips & teeth Neck: supple, non-tender Respiratory: normal air movement; No congested cough Cardiovascular: regular rate and rhythm, nl pulses Gastrointestinal: soft, non-tender, other (Negative Woody's by palpation); No distended Genitourinary - Female: nl external genitalia Musculoskeletal: nl extremities to inspection, nl gait and stance Extremities: normal pulses Neurological: nl mental status, nl speech, nl strength Skin: nl turgor Lymph: nl lymph nodes Results Result Diagram: 09/13/1852409/13/18524 GIOVANNI SEVILLA NP Sep 13, 2018 13:21
--- NOTE | 2018-09-13 14:22 | PREAC ---
Date/Time of Note Date/Time of Note DATE: 09/13/18 TIME: 14:21 Anesthesia Eval and Record Evaluation Time Pre-Procedure Interview DATE: 09/13/18 TIME: 14:21 Age 38 Sex female NPO: 8 hrs Preoperative diagnosis anemia Planned procedure EGD and colonoscopy Past Medical History Past Medical History: Includes Heme: Anemia Surgery & Anesthesia Issues No known issue Meds Anticoagulation: No Beta Gale within 24 hr: No Reason Beta Gale not given: Pt. not on B-Gale Active Scripts Ferrous Sulfate* (Ferrous Sulfate*) 325 Mg Tabec, 325 MG PO BID for 60 Days, TAB Prov:ALBINO TIMMONS MD 09/13/18 Discontinued Scripts Ondansetron (Ondansetron Odt) 4 Mg Tab.rapdis, 4 MG PO Q6H PRN for NAUSEA AND/OR VOMITING, #10 TAB Prov:CAROLINA CARDOZA PA-C 09/24/17 Ibuprofen* (Motrin*) 600 Mg Tab, 600 MG PO Q6, #30 TAB Prov:CAROLINA CARDOZA PA-C 09/24/17 Hydrocodone/Acetaminophen ([place] 5-325 Tablet) 1 Each Tablet, 1 TAB PO Q6H PRN for PAIN, #7 TAB Prov:CAROLINA CARDOZA PA-C 09/24/17 Current Medications Sodium Chloride 1,000 ml @ 80 mls/hr [id number] IV Last administered on 09/12/18at 19:00; Admin Dose 80 MLS/HR; Start 09/11/18 at 13:52 IV Flush (NS 3 ml) 3 ml PER PROTOCOL IV ; Start 09/11/18 at 14:00 Ondansetron HCl (Zofran Inj) 4 mg Q6H PRN IV NAUSEA/VOMITING; Start 09/11/18 at 14:00 Morphine Sulfate (morphine) 2 mg Q4H PRN IV .SEVERE PAIN 7-10; Start 09/11/18 at 14:00 Famotidine (Pepcid Iv) 20 mg Q12 IV Last administered on 09/13/18at 08:11; Admin Dose 20 MG; Start 09/11/18 at 21:00 Piperacillin Sod/ Tazobactam Sod 100 ml @ 200 mls/hr Q6 IVPB Last administered on 09/13/18at 12:00; Admin Dose 200 MLS/HR; Start 09/11/18 at 15:00 Ferric Sodium Gluconate Complex 125 mg/Sodium Chloride 110 ml @ 110 mls/hr DAILY@1300 IVPB Last administered on 09/13/18at 13:10; Admin Dose 110 MLS/HR; Start 09/11/18 at 15:30; Stop 09/15/18 at 13:59 Hard Fat/ Phenylephrine (Anusol Supp) 1 supp TID PRN [place] HEMORROID PAIN/ITCHING; Start 09/12/18 at 17:00 Meds reviewed: Yes Allergies Coded Allergies: No Known Allergy (Unverified , 09/11/18) Allergies Reviewed: Yes Labs/Studies Labs Reviewed: Reviewed by anesthesiologist Result Diagram: 09/13/18 0525 09/13/18 0525 Laboratory Tests 09/13/18 05:25 test: N/A Pre-procedure Exam Last vitals Vital Signs Date Temp Pulse Resp B/P (MAP) Pulse Ox O2 O2 Flow FiO2 Time Delivery Rate 09/13/18 98.2 55 16 113/55 100 Room Air 13:18 (74) Airway: Adequate mouth opening, Adequate thyromental dist Mallampati: Mallampati IV Teeth: Normal Lung: Normal Heart: Normal ASA Physical Status ASA physical status: 2 Emergency: None Pre-operative Attestations Prior to commencing anesthesia and surgery, the patient was re-evaluated, there was verification of: *The patient's identity *The results of appropriate recent lab work and preoperative vital signs *The above evaluation not changing prior to induction *Anesthetic plan, risk benefits, alternative and complications discussed with patient/family; questions answered; patient/family understands, accepts and wishes to proceed. PARI COREA DO Sep 13, 2018 14:22
[2018-09-13] MEDS ORDERED: ETOMIDATE 20 MG INJ ONE (14:23)
[2018-09-13] MEDS ORDERED: PROPOFOL 20 ML ONE (14:23)
[2018-09-13] MEDS ORDERED: LIDOCAINE 2% (SDV) 5 ML INJ ONE (14:23)
[2018-09-13] MEDS ORDERED: MIDAZOLAM 1 MG/ML 2 ML INJ ONE (14:24)
[2018-09-13] MEDS ORDERED: LIDOCAINE 4% SOLUTION 50 ML BTL ONE (14:24)
--- NOTE | 2018-09-13 14:55 | PAC ---
Date/Time of Note Date/Time of Note DATE: 09/13/18 TIME: 14:55 Post-Anesthesia Notes Post-Anesthesia Note Last documented vital signs Vital Signs Date Temp Pulse Resp B/P (MAP) Pulse Ox O2 O2 Flow FiO2 Time Delivery Rate 09/13/18 98 65 18 110/60 100 Room Air 1455 Activity: WNL Respiratory function: WNL Cardiovascular function: WNL Mental status: Baseline Pain reasonably controlled: Yes Hydration appropriate: Yes Nausea/Vomiting absent: Yes PARI COREA DO Sep 13, 2018 14:55
[2018-09-13] MEDS: SOD CHLORIDE 0.9% 1,000 ML IV SCH (15:35)
== END 2018-09-13 18:49 | disposition home or self-care (01) | DRG 445 ==
LOC: E/R 06:14 → PP2 10:10
PROVIDERS: ADMIT Hospitalist; ATTEND Hospitalist
PROC: 30233N1 Transfusion of Nonautologous Red Blood Cells into Peripheral Vein, Percutaneous Approach (ICD-10-PCS; 2018-09-12)
PROC: 0DB58ZX Excision of Esophagus, Via Natural or Artificial Opening Endoscopic, Diagnostic (ICD-10-PCS; 2018-09-13)
PROC: 0DB68ZX Excision of Stomach, Via Natural or Artificial Opening Endoscopic, Diagnostic (ICD-10-PCS; principal; 2018-09-13 14:00)
PROC: 0DJD8ZZ Inspection of Lower Intestinal Tract, Via Natural or Artificial Opening Endoscopic (ICD-10-PCS; 2018-09-13 14:00)
DX: K80.20 Calculus of gallbladder without cholecystitis without obstruction (principal); K62.5 Hemorrhage of anus and rectum; K29.70 Gastritis, unspecified, without bleeding; D50.9 Iron deficiency anemia, unspecified; K20.9 Esophagitis, unspecified; K57.30 Diverticulosis of large intestine without perforation or abscess without bleeding; K64.8 Other hemorrhoids; E66.9 Obesity, unspecified; Z68.34 Body mass index [BMI] 34.0-34.9, adult; Z72.0 Tobacco use; R11.2 Nausea with vomiting, unspecified
CPT/HCPCS: 36415; 36430; 76705; 78226; 80048; 80053; 80061; 81003; 82728; 83036; 83540; 83690; 83735; 84100; 84703; 85025; 86850; 86900; 86901; 86920; 88305; 88312; 88313; 96374; A9537; J0696; J2250; J2405; J2543; J2916; J7030; P9016

== ENCOUNTER 2018-10-08 01:33 | Inpatient (IN) | payer OTHER ==
[~2018-10-08] VITALS: Ht 180.3 cm; Wt 108.5 kg
[~2018-10-08 01:33] MED LIST changes: -HYDR-4011 PO; -IBUP-1542 PO; -ONDA4TAB14 PO
[2018-10-08] MEDS ORDERED: SOD CHLORIDE 0.9% 1,000 ML IV STA (02:08)
[2018-10-08] MEDS ORDERED: ONDANSETRON 4 MG INJ IV STA (02:08)
[2018-10-08] MEDS ORDERED: morphine 4 MG/ML VIAL IV STA (02:08)
[2018-10-08] MEDS ORDERED: PIPER-TAZO 3.375 GM IV (PMX) 100 ML IVPB ONE (05:00)
[2018-10-08] MEDS ORDERED: ONDANSETRON 4 MG INJ IV PRN ×2 (06:00→08:00)
[2018-10-08] MEDS ORDERED: ACETAMINOPHEN 325 MG TAB PO PRN (06:00)
[2018-10-08 08:00] VITALS: BP 109/66; PULSE 72; RESP 16
[2018-10-08] MEDS ORDERED: ACETAMINOPHEN 650 MG SUPP PR PRN (08:00)
[2018-10-08] MEDS ORDERED: morphine 4 MG/ML VIAL IV PRN (08:00)
[2018-10-08] MEDS ORDERED: NACL 0.9% 3 ML SYG IV SCH (08:00)
[2018-10-08] MEDS: DEXTROSE 5%-0.45% NACL 1,000 ML IV SCH ×2 (08:48→17:54)
[2018-10-08] MEDS ORDERED: FAMOTIDINE 20 MG INJ IV SCH (09:00)
[2018-10-08 09:09] VITALS: Ht 180.3 cm; Wt 108.5 kg
[2018-10-08] MEDS ORDERED: PIPER-TAZO 3.375 GM IV (PMX) 100 ML IVPB SCH (15:00)
[2018-10-08 15:06] VITALS: BP 104/51; PULSE 53; RESP 18
[2018-10-08 19:51] VITALS: BP 99/59; PULSE 59; RESP 18
== END 2018-10-08 21:10 | disposition home or self-care (01) | DRG 446 ==
LOC: FTE 01:33 → MS1 05:32
PROVIDERS: ADMIT Internal Medicine; ATTEND Internal Medicine
DX: K80.10 Calculus of gallbladder with chronic cholecystitis without obstruction (principal); D50.8 Other iron deficiency anemias; K20.9 Esophagitis, unspecified; K29.70 Gastritis, unspecified, without bleeding; Z68.33 Body mass index [BMI] 33.0-33.9, adult
CPT/HCPCS: 36415; 76705; 80053; 81001; 81025; 83690; 85025; 96374; 96375; 96376; J2270; J2405; J2543; J7030; J7042